=== PATIENT | male | born 2000 | race Two or more races ===

== ENCOUNTER → 2024-03-13 | Outpatient (CLI) | payer OTHER ==
[~2024-03-13] MED LIST: ISOVUE-300 61% 100ML VIAL As Ordered ONE; LIDOCAINE 1% MDV 20ML VIAL As Ordered ONE; PROHANCE 279.3MG/ML 5ML VIAL As Ordered ONE
== END ==
LOC: M RAD 08:36
PROVIDERS: ATTEND Physician Assistant
DX: M25.512 Pain in left shoulder (principal)
CPT/HCPCS: 23350; 73223; 77002; A9576; Q9967

== ENCOUNTER 2024-05-11 23:19 | Emergency (ER) | payer OTHER ==
[~2024-05-11] VITALS: Ht 167.6 cm; Wt 91.7 kg
[2024-05-12] MEDS ORDERED: IBUP-1022 PO (01:03)
[2024-05-12] MEDS ORDERED: AMOX875T2 PO (01:03)
[2024-05-12] MEDS: AUGMENTIN 875 MG TAB PO ONE (01:21)
[2024-05-12] MEDS: IBUPROFEN 600MG TAB PO ONE (01:21)
[2024-05-12 01:44] VITALS: BP 125/59; TEMP 97.7; O2SAT 99
== END 2024-05-12 01:44 | disposition home or self-care (01) ==
LOC: M ED 23:19 → EDBD 23:19 → M ED 05-12 01:44
DX: S61.235A Puncture wound without foreign body of left ring finger without damage to nail, initial encounter (principal); S51.831A Puncture wound without foreign body of right forearm, initial encounter; W54.0XXA Bitten by dog, initial encounter; M19.90 Unspecified osteoarthritis, unspecified site; Y92.009 Unspecified place in unspecified non-institutional (private) residence as the place of occurrence of the external cause; Y93.89 Activity, other specified; Y99.9 Unspecified external cause status; Z79.2 Long term (current) use of antibiotics; Z79.1 Long term (current) use of non-steroidal anti-inflammatories (NSAID)

== ENCOUNTER 2024-07-20 10:12 | Emergency (ER) | payer OTHER ==
[~2024-07-20] VITALS: Ht 170.2 cm; Wt 97.9 kg
[~2024-07-20 10:12] MED LIST changes: +AMOX875T2 PO; +IBUP-1022 PO; -ISOVUE-300 61% 100ML VIAL As Ordered ONE; -LIDOCAINE 1% MDV 20ML VIAL As Ordered ONE; -PROHANCE 279.3MG/ML 5ML VIAL As Ordered ONE
[2024-07-20] MEDS: IBUPROFEN 600MG TAB PO ONE (11:35)
[2024-07-20 12:30] VITALS: BP 120/65; O2SAT 97
[2024-07-20] MEDS ORDERED: OSEL75CA PO (12:42)
[2024-07-20 13:06] VITALS: TEMP 101.3
== END 2024-07-20 13:17 | disposition home or self-care (01) ==
LOC: M ED 10:12
DX: J09.X2 Influenza due to identified novel influenza A virus with other respiratory manifestations (principal); Z79.1 Long term (current) use of non-steroidal anti-inflammatories (NSAID); Z79.899 Other long term (current) drug therapy